=== PATIENT | male | born 2000 | race Caucasian/White ===

== ENCOUNTER 2020-05-14 08:12 | Emergency (ER) | payer OTHER ==
[2020-05-14 08:19] VITALS: RESP 18; TEMP 98.7
[2020-05-14] MEDS ORDERED: DIPH,PERTUS(ACELL)TETVAC-LF 0.5 ML VIAL IM ONE (08:20)
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
[2020-05-14 09:25] VITALS: BP 124/83; PULSE 78
== END 2020-05-14 10:20 | disposition home or self-care (01) ==
LOC: EC 08:12
DX: S02.2XXA Fracture of nasal bones, initial encounter for closed fracture (principal); S16.1XXA Strain of muscle, fascia and tendon at neck level, initial encounter; S60.512A Abrasion of left hand, initial encounter; Z23 Encounter for immunization; F17.290 Nicotine dependence, other tobacco product, uncomplicated; V47.5XXA Car driver injured in collision with fixed or stationary object in traffic accident, initial encounter; Y93.89 Activity, other specified; Y92.410 Unspecified street and highway as the place of occurrence of the external cause
CPT/HCPCS: 70450; 70486; 71046; 72125; 90471; 90715; 99284